=== PATIENT | female | born 1955 | race Caucasian/White ===

== ENCOUNTER 2017-10-20 10:00 | Inpatient (IN) | payer OTHER ==
[~2017-10-20] VITALS: Ht 160 cm; Wt 56.7 kg
[~2017-10-20 10:00] MED LIST: ADVAIR HFA 115-12 G1 INH; ALBUTEROL2.5 MG/0.5 INH; ASPIRIN325 PO; AUGMENTIN 875875 MG PO; COLACE100 MG PO; DOXYCYCLINE 10100 MG PO; GLYBURIDE 2.52.5 MG PO; LISINOPRIL5 MG PO; METFORMIN HCL500 MG PO; MUCINEX600 MG PO; PREDNISONE 10 M10 MG PO; PROTONIX40 M1 PO; SINGULAIR 10 MG10 M1 PO; SYMBICORT160 MCG/4. INH; TESSALON PERLE100 MG PO
[2017-10-20] MEDS ORDERED: CIPRO500 MG PO (10:08)
[2017-10-20 10:25] LABS: HEMATOCRIT 32.2 % (37.0-47.0); MCH 28.5 pg (26.0-34.0); MCHC 31.2 g/dL (28.0-37.0); MCV 91.3 fL (80.0-100.0); MPV 6.9 fl. (7.2-11.1); NUCLEATED RBCS 0 /100WBC; PLATELET COUNT* 754 thou/uL (150-400); RBC 3.52 mil/uL (4.20-5.00); RDW-CV 18.2 % (10.5-14.5); WBC 15.9 thou/uL (4.0-11.0)
[2017-10-20 10:31] LABS: APTT 26.7 Seconds (25.0-31.3); PROTIME 10.2 Seconds (9.20-11.50)
[2017-10-20 10:39] LABS: ANION GAP 4 mmol/L (7-16); BUN 9 mg/dL (7-18); CALCIUM 9.3 mg/dL (8.5-10.1); CHLORIDE 93 mmol/L (98-107); CO2 42 mmol/L (21-32); CREATININE 0.4 mg/dL (0.6-1.3); GLUCOSE 107 mg/dL (70-99); POTASSIUM 4.1 mmol/L (3.5-5.1); SODIUM 139 mmol/L (136-145)
[2017-10-20 10:46] LABS: ALBUMIN 2.5 g/dL (3.4-5.0); ALKALINE PHOSPHATASE 115 U/L (46-116); SGOT 20 U/L (15-37); SGPT 20 U/L (30-65); TOTAL BILIRUBIN 0.3 mg/dL (<0.1-1.0); TOTAL PROTEIN 7.6 g/dL (6.4-8.2); TROPONIN-I LEVEL <0.06 ng/mL (<0.06)
[2017-10-20 10:54] LABS: BE 10.2 mmol/L (-2 to +3); HCO3 38.9 mmol/L (22.0-26.0); PCO2 78.9 mmHg (35.0-45.0); PO2 78.8 mmHg (75.0-100.0); pH 7.311 (7.340-7.450)
--- NOTE | 2017-10-20 11:10 | NUR ---
PT BEING PUT ON BIPAP
[2017-10-20 11:15] LABS: ABSOLUTE LYMPHOCYTES 1.3 thou/uL (0.8-5.3); ABSOLUTE MONOCYTES 1.6 thou/uL (0.0-1.2); ANISOCYTOSIS 1+; PLATELET ESTIMATE INCREASED
[2017-10-20 11:16] LABS: HYPOCHROMASIA Occasional; POIKILOCYTOSIS Occasional
--- NOTE | 2017-10-20 11:18 | NUR ---
PT'S IV FLUIDS WERE STOPPED, TUBING WAS REMOVED FROM PT'S IV SITE AND PT'S IV WAS FLUSHED. LORAZEPAM WAS ADMINISTERED THROUGH PT'S IV SITE, THEN FLUSHED. IV FLUIDS/TUBING WERE THEN RE-ATTACHED TO IV AND CONTINUED.
[2017-10-20 12:26] VITALS: BP 129/56
--- NOTE | 2017-10-20 13:00 | NUR ---
PT ARRIVED TO ROOM 1 VIA CART. PT ON BIPAP. PT GOWNED AND PLACED ON MONITOR-NSR. PT ORIENTED TO ROOM,CALL LIGHT WITHIN REACH
[2017-10-20 13:30] VITALS: BP 119/75
--- NOTE | 2017-10-20 15:00 | NUR ---
PT INSISTING BIPAP BE REMOVED. BIPAP REMOVED. PT PLACED ON O2@4L NC-SATS 88%. PT STATES SHE WAS ON THE VENTILATOR AT [facility] "AND I NEVER WANT THAT AGAIN".
[2017-10-20] MEDS ORDERED: ROXICODONE5 MG PO (15:41)
[2017-10-20 16:00] VITALS: BP 119/66
--- NOTE | 2017-10-20 16:01 | NUR ---
PT ANXIOUS,REQUESTING ANXIETY AND PAIN MEDS. NO ORDERS AT THIS TIME. DR FERNANDEZ CALLED. DR FERNANDEZ INFORMED OF PT'S WISHES TO BE A DNI. ORDERS RECEIVED. ORDER TO DRAW ABGS BEFORE OPIATES OR BENZOS ORDERED. PT INFORMED OF DELAY IN ORDERS D/T TEST. [facility]
[2017-10-20 16:56] LABS: BE 17.5 mmol/L (-2 to +3); pH 7.377 (7.340-7.450)
[2017-10-20 16:57] LABS: HCO3 45.7 mmol/L (22.0-26.0); PCO2 79.6 mmHg (35.0-45.0); PO2 57.6 mmHg (75.0-100.0)
--- NOTE | 2017-10-20 17:08 | NUR ---
ABG RESULTS CALLED TO DR FERNANDEZ. NO ORDERS RECEIVED. AWAITING PULMONARY CONSULT. PT UPDATED AND STATES THAT SHE IS NOT GOING TO PUT THE BIPAP ON AND "JUST WANTS ANXIETY MEDICINE"
--- NOTE | 2017-10-20 17:43 | NUR ---
PT UP TO UNIT THIS AFTERNOON. PT WORE BIPAP FOR A FEW HOURS. PT ASKING FOR PAIN AND ANXIETY MEDS. PULM CONSULT THIS PM. AGUILAR CATH DRAINING CLEAR YELLOW URINE. PT TOLERATING PO WELL
[2017-10-20 18:00] VITALS: BP 124/61
[2017-10-20 22:00] VITALS: BP 104/54
[2017-10-21] VITALS (18 sets, daily range): BP systolic 78–142; BP diastolic 45–71
[2017-10-21 04:30] LABS: CALCIUM 8.3 mg/dL (8.5-10.1); CREATININE 0.5 mg/dL (0.6-1.3); HEMATOCRIT 28.1 % (37.0-47.0); HEMOGLOBIN 8.9 gm/dL (12.0-15.0); MAGNESIUM 1.7 mg/dL (1.8-2.4); MCH 29.2 pg (26.0-34.0); MCHC 31.8 g/dL (28.0-37.0); MCV 91.8 fL (80.0-100.0); RBC 3.06 mil/uL (4.20-5.00); WBC 8.6 thou/uL (4.0-11.0)
[2017-10-21 05:05] LABS: BE 12.1 mmol/L (-2 to +3); PO2 87.8 mmHg (75.0-100.0)
[2017-10-21 05:06] LABS: PCO2 90.4 mmHg (35.0-45.0); pH 7.277 (7.340-7.450)
[2017-10-21 05:07] LABS: HCO3 41.2 mmol/L (22.0-26.0)
[2017-10-21 05:20] LABS: POTASSIUM 5.5 mmol/L (3.5-5.1)
--- NOTE | 2017-10-21 07:04 | NUR ---
PT CARE ASSUMED. ST ON MONITOR. IVF INFUSING. O2 7L HF NC. PT REFUSING BIPAP. PRN PAIN MEDICATION GIVEN PER PT REQUEST. RYAN MORALES CALLED TO DR SOTUH. ORDERES RECEIVED. PT UNABLE TO KEEP O2 SAT AT 90% ON KEYLA MASK. PLACED BACK ON NC PER RT. LAUREN TO DD. CALL LIGHT IN REACH. BED IN LOWEST POSITION. FALL PRECAUTIONS IN PLACE INCLUDING BED ALARM. SLOW TO PROGRESS TOWARDS GOALS.
--- NOTE | 2017-10-21 07:28 | NUR ---
ASSUMED CARE OF PATIENT AFTER RECEIVING BEDSIDE REPORT. ASSESSMENT COMPLETED, VSS. PATIENT DENIES COMPLAINTS AND CONCERNS BUT DOES REPORT SOME ABDOMINAL PAIN. PATIENT DOES NOT APPEAR TO BE IN RESPIRATORY DISTRESS AND HAS AN O2 SATURATION OF 100% ON 7L. PATIENT DOES HAVE PRODUCTIVE COUGH. LUNG SOUND ARE COARSE WITH AUDIBLE WHEEZES AND RONCHI. PATIENT TURNS SELF IN BED BUT IS ENCOURAGED TO REPOSITION SELF FREQUENTLY, PATIENT STATES UNDERSTANDING. CARDIAC MONITORING IN PLACE, SINUS RHYTHM NOTED. BED ALARM ON. CALL LIGHT WITHIN REACH, USE REINFORCED. WILL CONTINUE TO MONITOR.
--- NOTE | 2017-10-21 09:25 | CON ---
[address] [address] CONSULTATION Name: FLORESMARLON Josué Room: [address] IN M.R.#: [id number] Admission: 10/20/17 Attend Phys: Jose Bermeo, Discharge: Date of : 59 Report #: [id number] THIS REPORT FOR: //name// CC: Jose Knowles HISTORY OF PRESENT ILLNESS: The patient is a 61-year-old female patient with history of COPD, chronic respiratory failure, on home oxygen. She is known to our service from hospitalization at [place]. Unfortunately, she continues to smoke and she has severe COPD. Few weeks ago, she was admitted and she was on the ventilator at [facility] for influenza , Her hospital course at that time was complicated by rectus sheet hematoma and she was discharged home. She presented back to [facility] ER with increasing cough with sputum production, she described the sputum is yellow in color, associated with shortness of breath and feeling of chest tightness. She still smokes around 6 cigarettes per day. Her ABGs were noted. This morning, her ABG showed CO2 of 90; however, surprisingly she is tolerating that very well. She is awake, alert, protecting the airways, talking, answer questions , Initially she was refusing intubation but after Dr. Holder explained to her the current situation she changed her code status to full code she confirmed that she does not want intubation. Unfortunately, she is intolerant to the BiPAP; even ON previous hospitalization, she cannot keep her BiPAP. However, per the RT, yesterday she was able to keep the BiPAP on after she received 0.25 mg of Xanax. ALLERGIES: No known drug allergies, although she reported that she has been told she had MORPHINE allergy per her daughter. HOME MEDICATIONS: She is on lisinopril, guaifenesin, Symbicort, albuterol nebulization treatment, montelukast, pantoprazole, metformin, and recently was on prednisone taper. PAST MEDICAL HISTORY: Chronic respiratory failure, on home oxygen; COPD, coronary artery disease, status post stents; and hypertension. PAST SURGICAL HISTORY: Stoma with reversal and surgery in 2006. SOCIAL HISTORY: She continues to smoke for a long time, unfortunately she continues to smoke 6 cigarettes per day. She does not drink alcohol excessively. REVIEW OF SYSTEMS: She reported weakness, tiredness, fatigue, but she denied any change in vision. She denied difficulty swallowing or neck pain. She denied any palpitation or chest pain. She reported poor appetite. No abdominal pain. No bleeding from any orifice. The rest of the review [place] [address] CONSULTATION Name: MARLON FLORES Josué Room: [address] IN .R.#: [id number] Admission: 10/20/17 Attend Phys: Jose Bermeo, Discharge: Date of : 59 Report #: [id number] PHYSICAL EXAMINATION: VITAL SIGNS: On examination, she is on 6 liters oxygen with saturation more than 90%, her blood pressure is 125/56, pulse rate of 100-110, afebrile. GENERAL: Elderly lady, awake, alert, answering questions properly. HEAD: Normocephalic, atraumatic. EYES: Pupils reactive to light. EARS: External ear looks healthy and normal. ORAL CAVITY: Dry mucous membrane. Mallampati of 2. NECK: Supple. CHEST: Diminished air movement bilaterally, prolonged expiratory phase with wheezes. HEART: S1, S2, no murmur. ABDOMEN: Benign, soft, lax, nontender. EXTREMITIES: Lower extremities, no edema. No calf tenderness. SKIN: Normal for age and race. No rash. NEUROLOGIC: Moving 4 extremities spontaneously. No focal weakness. NEUROLOGIC: Although, her CO2 was high, but she is tolerating that well, protecting the airways and answer questions properly. LABORATORY DATA: Her chest x-ray showed signs of diffuse interstitial markings. Her ABGs, she had 3 sets of ABGs, this one this morning 7.27//87. Creatinine of 0.5, BUN of 12, bicarb 40, potassium 5.5. Her INR of 1. White blood count 15.9, hemoglobin 10, and platelets of 754. Currently, she is on IV steroids every 6 hours, Singulair, levofloxacin, Brovana, Pulmicort, vancomycin, scheduled nebulization treatment, Xanax p.r.n. IMPRESSION: 1. Acute hypoxic and hypercapnic respiratory failure on chronic. 2. Chronic obstructive pulmonary disease exacerbation. 3. Smoker. 4. History of coronary artery disease. At this point, the patient will continue the steroids, scheduled nebulization treatment, and bronchodilators. Initially she was DNI but now she is full code , I did discuss with the patient, although her CO2 is high, but she is mentating well, protecting the airways, answer questions properly, she is tolerating the high CO2 very well at this point. However, definitely she needs to be on BiPAP. She may benefit from small dose of anxiolytic like Xanax, which can help with anxiety and let her keep her BiPAP in place. We will follow chest x-rays and ABGs. Condition guarded, prognosis guarded , although she is tolerating the High CO2 but may need to be intubated especially if she continues to be intolerant to BiPAP. [address] [address] CONSULTATION Name: MARLON FLORES Room: 001-P ADM IN .R.#: [id number] Admission: 10/20/17 Attend Phys: Jose Bermeo, Discharge: Date of : 59 Report #: [id number] Thank you for the consult. Critical Care time 35 minutes <ELECTRONICALLY SIGNED> By: Piero Perez MD 10/21/17 0925 [id number] Perez MD /nt
--- NOTE | 2017-10-21 12:12 | EKG ---
[place] [address] ELECTROCARDIOGRAM REPORT Name: MARLON FLORES Room: [address] ADM IN .R.#: [id number] Admission: 10/20/17 Attend Phys: Jose Bermeo, Discharge: Date of : 59 Report #: [id number] THIS REPORT FOR: //name// [facility] ED Test Date: 2017-10-20 Test Time: 10:50:49 Pat Name: MARLON FLORES Department: Room: [facility] Gender: F Playground Monitor: Javi MALONE : 1955 Requested By: Jesus Danielle Order Number: [id number] MD: Emir Waller Measurements Intervals [place] Rate: 126 P: 91 PA: 140 QRS: 72 QRSD: 92 T: 57 QT: 313 QTc: 454 Interpretive Statements Sinus tachycardia Probable left atrial enlargement Artifact in lead(s) I,II,III,aVR,aVL,aVF Compared to ECG 09/21/2014 10:42:09 Sinus rhythm no longer present Electronically Signed On 10-21-2017 12:12:25 CDT by Emir Waller [email or web address] <ELECTRONICALLY SIGNED> By: Emir Waller MD, FAC 10/21/17 1212 1050 1050 Emir Waller MD, [facility] /EPI
[2017-10-21 12:45] LABS: BE 13.1 mmol/L (-2 to +3); PO2 62.3 mmHg (75.0-100.0)
[2017-10-21 12:46] LABS: HCO3 42.2 mmol/L (22.0-26.0); PCO2 88.2 mmHg (35.0-45.0); pH 7.298 (7.340-7.450)
--- NOTE | 2017-10-21 13:30 | NUR ---
PT ADMITTED YESTERDAY WITH RESP FAILURE, NOT DOING WELL THIS MORNING ON BIPAP. NURSE HAD DISCUSSION WITH PT AND SHE DOES WANT TO BE INTUBATED. SHE WANTED TO COMPLETE A DPOA FORM PRIOR TO INTUBATION, NAMING HER DPOA. FORM COMPLETED AND COPY ON THE CHART.
--- NOTE | 2017-10-21 14:19 | NUR ---
PATIENT CONTINUED TO DETERIORATE THROUGHOUT SHIFT. INTUBATION DISCUSSED AT LENGTH SEVERAL TIMES. PATIENT STATES UNDERSTANDING OF NEED FOR INTUBATION. PATIENT MADE DPOA PRIOR TO INTUBATION. RISKS AND BENEFITS DISCUSSED WITH PATIENT, PATIENT STATES UNDERSTANDING. PATIENT INTUBATED WITH SOME DIFFICULTY. PICC LINE BEING PLACED AT CURRENT. PATIENT TOLERATING WELL. PATIENT CONTINUES TO BE TACHYCARDIC DESPITE SEDATION. WILL CONTINUE TO MONITOR.
[2017-10-21 14:51] LABS: BE 12.9 mmol/L (-2 to +3); PO2 82.7 mmHg (75.0-100.0)
[2017-10-21 14:56] LABS: pH 7.262 (7.340-7.450)
[2017-10-21 14:57] LABS: HCO3 42.7 mmol/L (22.0-26.0); PCO2 96.8 mmHg (35.0-45.0)
--- NOTE | 2017-10-21 15:54 | NUR ---
CONSULTED TO PLACE PICC FOR PT SEDATED AND ON VENT WITH PE. ORDER AND CONSENT NOTED. RIGHT UPPER ARM ASSESSED WITH ULTRASOUND AND BASILIC VEIN IDENTIFIED AND NOTED TO BE WIDLEY PATENT. A 5FR TRIPLE LUMAN POWER PICC WAS PLACED PER HOSPITAL POLICY. LINE TRIMMED TO 42CM AND ADVANCED TO 0CM EXTERNAL WITH OUT DIFFICULTY. LINE TIP CONFIRMED WTIH SHERLOCK 3CG . LINE SECURED AND RELEASED FOR IMMEDIATE USE. PRIMARY NURSING AWARE.
--- NOTE | 2017-10-21 18:38 | NUR ---
PATIENT HAD IVC FILTER PLACED, TOLERATED WELL. PATIENT CURRENTLY ON LEVOPHED, PATIENT TOLERATING WELL. PATIENT WELL SEDATED BUT ARROUSABLE. PATIENT DOES NOT FOLLOW COMMANDS AT THIS TIME BUT DOES LOCALIZE TO PAIN. BEDSIDE REPORT TO BE GIVEN TO ONCOMING SHIFT.
[2017-10-22] VITALS (24 sets, daily range): BP systolic 89–145; BP diastolic 52–81
[2017-10-22 05:37] LABS: ALBUMIN 2.1 g/dL (3.4-5.0); CALCIUM 8.3 mg/dL (8.5-10.1); CREATININE 0.5 mg/dL (0.6-1.3); POTASSIUM 4.6 mmol/L (3.5-5.1); TOTAL BILIRUBIN 0.3 mg/dL (<0.1-1.0)
[2017-10-22 05:46] LABS: ABSOLUTE MONOCYTES 0.8 thou/uL (0.0-1.2); ABSOLUTE NEUTROPHILS 10.7 thou/uL (1.6-8.1); BASOPHILS 0.1 %; HEMATOCRIT 25.7 % (37.0-47.0); HEMOGLOBIN 8.1 gm/dL (12.0-15.0); LYMPHOCYTES 8.2 %; MCH 28.8 pg (26.0-34.0); MCHC 31.6 g/dL (28.0-37.0); MONOCYTES 6.3 %; MPV 7.1 fl. (7.2-11.1); NUCLEATED RBCS 0 /100WBC; PLATELET COUNT* 627 thou/uL (150-400); POLYS 85.4 %; RBC 2.82 mil/uL (4.20-5.00); WBC 12.5 thou/uL (4.0-11.0)
[2017-10-22 06:20] LABS: BE 5.8 mmol/L (-2 to +3); HCO3 31.2 mmol/L (22.0-26.0); PO2 113.1 mmHg (75.0-100.0)
--- NOTE | 2017-10-22 07:49 | NUR ---
ASSUMED CARE OF PATIENT AFTER RECEIVING BEDSIDE REPORT. PATIENT REMAINS INTUBATED AND SEDATED. PATIENT REMAINS ON LEVOPHED. ABGS CONTINUE TO IMPROVE ON VENTILATOR. BREATH SOUNDS CONTINUE TO IMPROVE. WILL WORK TOWARDS DECREASING LEVOPHED. DRIVEWAY SEALER IN PLACE, SINUS RHYTHM NOTED. BED ALARM ON. WILL CONTINUE TO MONITOR.
--- NOTE | 2017-10-22 16:23 | NUR ---
PT UP TO CHAIR FOR PT TOLERATED FOR ABOUT 30 MINUETS. COLOSTOMY REMAINS PATENT FOR REDISH AUTUMN BAEZ.PT HAS HAD ALOT OF VISITORS TODAY. UROLGY WAS HERE TO SEE PT.AWAITING TRANSFER TO TELE. SBAR FILLED OUT.
--- NOTE | 2017-10-22 17:48 | NUR ---
PATIENT RESTED WELL THROUGHOUT SHIFT. PATIENT TOLERATED BEING ON VENTILATOR THROUGHOUT SHIFT. PATIENT ABLE TO BE TITRATED OFF OF LEVOPHED GTT. SEDATION NEEDED TO BE TITRATED UP SLIGHTLY. PATIENT STILL ARROUSABLE. OG PLACED BY XRAY, PATIENT TOLERATED WELL. BEDSIDE REPORT TO BE GIVEN TO ONCOMING SHIFT.
[2017-10-23] VITALS (17 sets, daily range): BP systolic 100–145; BP diastolic 50–76
[2017-10-23 04:57] LABS: HEMATOCRIT 23.4 % (37.0-47.0); HEMOGLOBIN 7.6 gm/dL (12.0-15.0); MCH 29.4 pg (26.0-34.0); MCHC 32.4 g/dL (28.0-37.0); MCV 90.6 fL (80.0-100.0); MPV 6.9 fl. (7.2-11.1); NUCLEATED RBCS 0 /100WBC; RBC 2.58 mil/uL (4.20-5.00); RDW-CV 18.8 % (10.5-14.5); WBC 10.5 thou/uL (4.0-11.0)
[2017-10-23 05:07] LABS: PLATELET COUNT* 467 thou/uL (150-400)
[2017-10-23 05:09] LABS: PREALBUMIN 15.7 mg/dL (18.0-35.7)
[2017-10-23 05:11] LABS: CALCIUM 8.1 mg/dL (8.5-10.1); CREATININE 0.4 mg/dL (0.6-1.3); MAGNESIUM 1.6 mg/dL (1.8-2.4); POTASSIUM 4.2 mmol/L (3.5-5.1); TOTAL BILIRUBIN 0.3 mg/dL (<0.1-1.0); TOTAL PROTEIN 5.4 g/dL (6.4-8.2)
[2017-10-23 05:53] LABS: ABSOLUTE LYMPHOCYTES 0.5 thou/uL (0.8-5.3); ANISOCYTOSIS 1+; PLATELET ESTIMATE ADEQUATE; POIKILOCYTOSIS 1+
[2017-10-23 05:54] LABS: HYPOCHROMASIA 1+; TARGET CELLS Occasional
[2017-10-23 08:49] LABS: BE 5.3 mmol/L (-2 to +3); HCO3 29.9 mmol/L (22.0-26.0); PCO2 44.2 mmHg (35.0-45.0); PO2 100.4 mmHg (75.0-100.0); pH 7.448 (7.340-7.450)
--- NOTE | 2017-10-23 10:49 | NUR ---
PT REMAINS ON VENT, NO WEANING TRIAL TODAY. NO FAMILY HERE AT THIS TIME. CASE MGT TO CONTINUE TO FOLLOW.
--- NOTE | 2017-10-23 23:36 | NUR ---
INITAL ASSESSMENT COMPLETED AT 1999. PT INTUBATED AND SEDATED ON MONITOR. SOFT BILATERAL WRISTRESTRAINTS IN PLACE TO MAINTAIN ET TUBE, OG, AGUILAR CATHETER AND IV SITES.
[2017-10-24] VITALS (21 sets, daily range): BP systolic 94–172; BP diastolic 53–89
[2017-10-24 06:03] LABS: ABSOLUTE LYMPHOCYTES 2.1 thou/uL (0.8-5.3); ABSOLUTE MONOCYTES 0.7 thou/uL (0.0-1.2); ABSOLUTE NEUTROPHILS 9.4 thou/uL (1.6-8.1); BASOPHILS 0.1 %; HEMATOCRIT 24.1 % (37.0-47.0); HEMOGLOBIN 7.4 gm/dL (12.0-15.0); LYMPHOCYTES 17.1 %; MCHC 30.8 g/dL (28.0-37.0); MCV 91.1 fL (80.0-100.0); MONOCYTES 5.8 %; MPV 6.8 fl. (7.2-11.1); NUCLEATED RBCS 0 /100WBC; PLATELET COUNT* 424 thou/uL (150-400); RBC 2.64 mil/uL (4.20-5.00); RDW-CV 18.6 % (10.5-14.5); WBC 12.2 thou/uL (4.0-11.0)
[2017-10-24 06:12] LABS: PREALBUMIN 17.8 mg/dL (18.0-35.7)
[2017-10-24 06:23] LABS: CALCIUM 8.1 mg/dL (8.5-10.1); CREATININE 0.4 mg/dL (0.6-1.3); POTASSIUM 3.5 mmol/L (3.5-5.1); TOTAL BILIRUBIN 0.3 mg/dL (<0.1-1.0); TOTAL PROTEIN 5.3 g/dL (6.4-8.2)
[2017-10-24 09:59] LABS: BE 5.2 mmol/L (-2 to +3); HCO3 31.6 mmol/L (22.0-26.0); PO2 68.7 mmHg (75.0-100.0); pH 7.354 (7.340-7.450)
--- NOTE | 2017-10-24 10:36 | NUR ---
Nutrition: Recommend Fibersource HN @ goal rate 55mL/hr. See RD Assessment Form for details.
--- NOTE | 2017-10-24 11:58 | NUR ---
ASSUMED PT CARE 0730. SEDATION TURNED OFF AT 0805 FOR WEANING TRIAL. PT FAILED WEANING TRIAL TOWARDS END HR IN 140'S AND O2 65%. PT PLACED BACK ON VENTILATOR WITH SEDATION. PT FOLLOWING COMMANDS. PT ATTEMPTING TO PULL AT TUBES. RESTRAINTS IN PLACE. RESTRAINT ORDER RENEWED. RECEIVED ORDERS FOR TUBE FEEDINGS. ADDRESSED MUCINEX WITH DR. DR GREENE MUCINEX. DPOA CALLED FOR CONSENT FOR BLOOD PRODUCT. SURGERY CONSULTED FOR POTENTIAL PLACEMENT OF TRACH.
[2017-10-24 18:33] LABS: HEMATOCRIT 25.4 % (37.0-47.0); HEMOGLOBIN 8.1 gm/dL (12.0-15.0)
--- NOTE | 2017-10-24 18:52 | NUR ---
ORAL CARE GIVEN. PT AFEBRILE. PT REPOSITIONED. RESIDUAL TUBE FEEDINGS 45. RATE REMAINED AT 10ML / HOUR. PT REPOSITIONED. ORAL CARE GIVEN. DTR GIVEN UPDATE.
[2017-10-25] VITALS (18 sets, daily range): BP systolic 95–160; BP diastolic 52–86
[2017-10-25 04:43] LABS: ABSOLUTE LYMPHOCYTES 1.3 thou/uL (0.8-5.3); ABSOLUTE MONOCYTES 0.4 thou/uL (0.0-1.2); ABSOLUTE NEUTROPHILS 9.4 thou/uL (1.6-8.1); BASOPHILS 0.1 %; HEMATOCRIT 27.9 % (37.0-47.0); HEMOGLOBIN 8.9 gm/dL (12.0-15.0); LYMPHOCYTES 11.4 %; MCH 28.6 pg (26.0-34.0); MCHC 31.9 g/dL (28.0-37.0); MCV 89.7 fL (80.0-100.0); MONOCYTES 3.2 %; MPV 7.1 fl. (7.2-11.1); NUCLEATED RBCS 1 /100WBC; PLATELET COUNT* 407 thou/uL (150-400); POLYS 85.3 %; RBC 3.11 mil/uL (4.20-5.00); RDW-CV 18.4 % (10.5-14.5)
[2017-10-25 04:49] LABS: ALBUMIN 2.1 g/dL (3.4-5.0); CALCIUM 8.1 mg/dL (8.5-10.1); CREATININE 0.4 mg/dL (0.6-1.3); MAGNESIUM 1.8 mg/dL (1.8-2.4); POTASSIUM 4.2 mmol/L (3.5-5.1); TOTAL BILIRUBIN 0.3 mg/dL (<0.1-1.0); TOTAL PROTEIN 5.5 g/dL (6.4-8.2)
--- NOTE | 2017-10-25 06:43 | NUR ---
PATIENT SLOWLY PROGRESSING. ON FENTANYL GTT, VERSED IS OFF D/T SCHEDUALED WEANING TRIAL THIS A.M. TUBE FEEDS OFF, RESIDUALS REMAINED LOW. NO ACUTE HEMODYNAMIC CHANGES OVER NIGHT. RECIEVED A FULL BED BATH AND LAMONTE CHANGE, TOLERATED WELL. Q2H ORAL CARE AND TURNS GIVEN. BED TO LOWEST POSITION. WILL CONTINUE TO MONITOR CLOSELY.
[2017-10-25 08:40] LABS: BE 1.9 mmol/L (-2 to +3); HCO3 28.3 mmol/L (22.0-26.0); PO2 70.9 mmHg (75.0-100.0); pH 7.345 (7.340-7.450)
[2017-10-25 08:41] LABS: PCO2 53.1 mmHg (35.0-45.0)
--- NOTE | 2017-10-25 10:15 | NUR ---
Pt remains on the vent, per nursing did well with her weaning trial today. No family here at this time but nursing said and dtr call during the day to check on her. They had no difficulty in reaching the yesterday when they needed consent to give blood. Case Mgt continues to follow.
--- NOTE | 2017-10-25 12:54 | NUR ---
ASSUMED PT CARE 0730. WEANING TRIAL COMPLETED. PER PULMONARY PT IMPROVING, WILL ATTEMPT TRIAL TOMORROW AND PLAN TO EXTUBATE TO BIBAP. VSS. MEDICATIONS GIVEN VIA OG. PT AFEBRILE. SEDATION VACATION COMPLETE. PT RESPONDING, FOLLOWING COMMANDS, ANXIOUS WITHOUT SEDATION.
--- NOTE | 2017-10-25 16:49 | NUR ---
VSS. PT TOLERATING SEDATION. PT ABLE TO FOLLOW COMMANDS. PT REPOSITIONED. ORAL CARE GIVEN. INTAKE AND OUTPUT CHARTED. PT PLANNED TO HAVE WEANING TRIAL TOMORROW.
[2017-10-26] VITALS (19 sets, daily range): BP systolic 111–167; BP diastolic 55–94
--- NOTE | 2017-10-26 06:54 | NUR ---
PATIENT PROGRESSING TOWARDS GOALS. NO ACUTE HEMODYNAMIC CHANGES OVER NIGHT. ABLE TO FALLOW COMMANDS. TUBE FEEDS TOLERATED AT GOAL OF 55 RESIDULAS <10. TUBEFEED TURNED OFF D/T TTT THIS AM. FENTANYL @ 8ML AND VERSED OFF. RECIEVED FULL BED BATH WITH LINEN CHANGE. ORAL CARE GIVEN Q2H WITH POSITIONAL CHANGES. URINE OUPUT ADEQUATE. WILL CONTINUE TO MONITOR CLOSELY.
[2017-10-26 07:04] LABS: HEMATOCRIT 28.5 % (37.0-47.0); HEMOGLOBIN 8.9 gm/dL (12.0-15.0); MCH 28.1 pg (26.0-34.0); MCHC 31.3 g/dL (28.0-37.0); MCV 89.8 fL (80.0-100.0); MPV 7.5 fl. (7.2-11.1); RBC 3.18 mil/uL (4.20-5.00); RDW-CV 18.1 % (10.5-14.5); WBC 13.3 thou/uL (4.0-11.0)
--- NOTE | 2017-10-26 08:37 | NUR ---
2493 ASSUMED CARE OF PATIENT. PLEASE SEE DOCUMENTED ASSESSMENT. PT AWAKE AND ABLE TO FOLLOW COMMANDS. DR ROJO TO SEE PATIENT. PLAN IS VENT WEANING TRIAL AND POSSIBLE EXTUBATION
--- NOTE | 2017-10-26 08:38 | NUR ---
0830 STARTED WEANING TRIAL. FENTANYL REMAINS AT 25 MCG/HOUR. VERSED REMAINS OFF AND TUBE FEEDING IS OFF
[2017-10-26 09:13] LABS: BE 6.8 mmol/L (-2 to +3); HCO3 32.9 mmol/L (22.0-26.0); PO2 71.9 mmHg (75.0-100.0)
[2017-10-26 09:17] LABS: PCO2 55.6 mmHg (35.0-45.0)
--- NOTE | 2017-10-26 09:51 | NUR ---
0940 ABG TO DRMIGLIAZZO. ORDER TO EXTUBATE AND REMOVE OG. OFF OF VERSED AND FENTANYL DRIPS. EXTUBATED O 35% VENTIMASK. GIVEN CALL LIGHT AND SUCTION. MOUHT SUCTINNED AND SWABBED. SINUS TACH
[2017-10-26 11:35] LABS: BE 8.3 mmol/L (-2 to +3); HCO3 33.9 mmol/L (22.0-26.0); PO2 70.7 mmHg (75.0-100.0); pH 7.416 (7.340-7.450)
--- NOTE | 2017-10-26 11:51 | NUR ---
ABG TO DR ROJO. MAY START CLEAR LIQUIDS.SPOUSE PRESENT
--- NOTE | 2017-10-26 16:09 | NUR ---
DR ROJO CALLED TO CHECK ON PATIENT. ORDERS NOTED. PT PREFERS TO BE ON NASAL CANNULA BUT AGREES TO 35% VENTIMASK AGAIN. MORE ORIENTED AND COOPERATIVE NOW.
--- NOTE | 2017-10-26 17:07 | NUR ---
PATIENT PROGRESSING TOWARDS GOALS. EXTUBATED THIS MORNING TO 35% VENTIMASK. ALERT AND ORIENTED. STARTED INCENTIVE SPIROMETER AND FLUTTER VALVE. SECRETIONS THICK BUT MOBILE.HELPS WITH TURNS. TOLERATING CLEAR LIQUIDS BUT NOT HUNGRY. SPOUSE HAS VISITED
--- NOTE | 2017-10-26 17:16 | NUR ---
PATIENT NOW TELEMETRY STATUS
[2017-10-27] VITALS (17 sets, daily range): BP systolic 130–167; BP diastolic 66–101
[2017-10-27 02:32] LABS: HEMOGLOBIN 8.8 gm/dL (12.0-15.0); MCH 28.3 pg (26.0-34.0); MCHC 31.6 g/dL (28.0-37.0); MCV 89.7 fL (80.0-100.0); NUCLEATED RBCS 0 /100WBC; PLATELET COUNT* 389 thou/uL (150-400); RBC 3.12 mil/uL (4.20-5.00); RDW-CV 18.2 % (10.5-14.5); WBC 17.3 thou/uL (4.0-11.0)
[2017-10-27 02:46] LABS: ALBUMIN 2.4 g/dL (3.4-5.0); CALCIUM 8.2 mg/dL (8.5-10.1); CREATININE 0.3 mg/dL (0.6-1.3); POTASSIUM 3.3 mmol/L (3.5-5.1); TOTAL BILIRUBIN 0.5 mg/dL (<0.1-1.0); TOTAL PROTEIN 5.6 g/dL (6.4-8.2)
[2017-10-27 03:20] LABS: ABSOLUTE LYMPHOCYTES 1.6 thou/uL (0.8-5.3); ABSOLUTE MONOCYTES 0.5 thou/uL (0.0-1.2); ABSOLUTE NEUTROPHILS 15.2 thou/uL (1.6-8.1)
[2017-10-27 03:21] LABS: ANISOCYTOSIS 1+; PLATELET ESTIMATE ADEQUATE; TOXIC GRANULATION 1+
--- NOTE | 2017-10-27 05:01 | NUR ---
PATIENT SLOWLY PROGRESSING TOWARDS GOALS. ORIENT X4. STRENGTH IMPROVING. O2 WNL ON VENTIMASK TOLERATING WELL. PATIENT HAD TROUBLE SLEEPING OVER NIGHT WAS ABLE TO FALL ASLEEP ARUND 430 A.M. PATIENT CONTINUES TO HAVE LEFT SHOULDER PAIN. REPOSITION IN BED CONSISTENTLY TO HELP WITH PAIN MANAGEMENT. CURRENTLY NO VOICED CONCERNS WILL CONTINUE TO MONITOR CLOSELY. CALL LIGHT WITHIN REACH. BED TO LOWEST POSITION.
--- NOTE | 2017-10-27 09:58 | NUR ---
6574 ASSUMED CARE OF PATIENT. SEE DOCUMENTED ASSESSMENT. GOAL IS TO STAY OFF OF THE VENTILATOR.
--- NOTE | 2017-10-27 12:53 | NUR ---
WORKED WITH PHYSICAL THERAPY
--- NOTE | 2017-10-27 17:14 | NUR ---
SOME PROGRESSION TOWARDS GOALS. VERY ANXIOUS THIS AM AND WOULD PANIC AND SAY"I CAN'T BREATHE." MULTITUDES OF C/O OF "PAIN ALL OVER." WAS ABLE TO WORK WITH PHYSICAL THERAPY BUT DID NOT WANT TO DANGLE. DOES WELL WITH CLEAR LIQUIDS. BECOMES VERY SHORT OF AIR WITH ANY ACTIVITY. SPOUSE VISITED
--- NOTE | 2017-10-27 18:11 | NUR ---
ADVANCED TO 2 GRAM SODIUM DIET AND TOLERATING WELL
--- NOTE | 2017-10-27 19:45 | NUR ---
PT C/O OF PAIN ALL OVER. EXPLAINED TO THE PT THAT SHE HAS TORADOL ORDERED Q 8H AND IT WASN'T DUE UNTIL 2300. PT STATES THAT WE AREN'T TREATING HER PAIN AND IT NEEDS TO BE TREATED. PT ALSO STATES THAT SHE NEEDS SOMETHING FOR SLEEP B/C SHE DID'T SLEEP AT NIGHT. CALLED POWER TECHNICIAN AND SPOKE TO DEEP. HE SAID THAT THE ORDER FOR TORADOL IS ALL SHE IS GETTING AND TO USE THE XANAX FOR SLEEP.
--- NOTE | 2017-10-27 20:00 | NUR ---
DR ADAME CALLED AND GAVE AN ORDER FOR DIAZEPAM 7.5MG PO X1 DOSE FOR SLEEP. ORDER WRITTEN.
[2017-10-28] VITALS (7 sets, daily range): BP systolic 126–149; BP diastolic 67–78
--- NOTE | 2017-10-28 02:09 | NUR ---
REPORT GIVEN TO CRISELDA ON 2W. PT IS GOING TO BED 214
[2017-10-28 04:52] LABS: ABSOLUTE LYMPHOCYTES 1.5 thou/uL (0.8-5.3); ABSOLUTE MONOCYTES 0.7 thou/uL (0.0-1.2); ABSOLUTE NEUTROPHILS 12.4 thou/uL (1.6-8.1); HEMATOCRIT 28.6 % (37.0-47.0); HEMOGLOBIN 9.1 gm/dL (12.0-15.0); LYMPHOCYTES 10.2 %; MCH 28.8 pg (26.0-34.0); MCHC 31.7 g/dL (28.0-37.0); MCV 90.9 fL (80.0-100.0); MONOCYTES 4.8 %; MPV 7.2 fl. (7.2-11.1); NUCLEATED RBCS 0 /100WBC; PLATELET COUNT* 358 thou/uL (150-400); RBC 3.14 mil/uL (4.20-5.00); RDW-CV 18.2 % (10.5-14.5); WBC 14.6 thou/uL (4.0-11.0)
--- NOTE | 2017-10-28 05:04 | NUR ---
ASSUMED PT CARE AT 0300, PT IS A&OX4, TRACING NSR ON THE MONITOR, ON 35% VENTI MASK, ON 3L NC DURING MEALS. PT DENIES ANY PAIN OR NEEDS AT THIS TIME. PT IS RESTING IN BED COMFORTABLY. PT HAS A AGUILAR TO DD, PT HAS IVF INFUSIONG PER OCT. BED IN LOW POSITION, CALL LIGHT IN REACH, BED ALARM ON, YELLOW ARM BAND AND SOCKS IN PLACE, HOURLY ROUNDING COMPLETED FOR PT SAFETY.
[2017-10-28 05:10] LABS: ALBUMIN 2.5 g/dL (3.4-5.0); CALCIUM 8.4 mg/dL (8.5-10.1); CREATININE 0.3 mg/dL (0.6-1.3); TOTAL BILIRUBIN 0.7 mg/dL (<0.1-1.0); TOTAL PROTEIN 5.5 g/dL (6.4-8.2)
--- NOTE | 2017-10-28 08:30 | NUR ---
ASSUMED PT. CARE AND RECEIVED REPORT AT 0730. PT A/OX4, VSS, MONITOR ON TRACING SR. PT. C/O GENERALIZED PAIN DOWN FROM 11 TO 8 AFTER RECEIVING TORDAL FROM NOC RN, BUT REQUESTING SOMETHING FURTHER FOR RELIEF. ON VENTIMASK AT 35%, CHANGED TO 3L NC FOR BREAKFAST AT 94%. FULL ASSESSMENT COMPLETED, REFER TO CHARTING. DR. ADAME INTO SEE. DISCUSSED WITH PT. THAT HE DID NOT WANT TO GIVEN HER FURTHER PAIN/SLEEPING MEDS DUE TO RESPIRATORY DEPRESSION THAT CAN OCCUR. FALL PRECAUTIONS IN PLACE, CALL LIGHT IN REACH, WILL CONTINUE WITH PLAN OF CARE.
--- NOTE | 2017-10-28 15:44 | NUR ---
Pt's plan continues to be to return home once medically stable. CM discussed possible need for home o2 and payment options, since Pt does not have health insurance. Per Pulm, plan dc later this week. Following.
--- NOTE | 2017-10-28 19:10 | NUR ---
PT. PROGRESSING TOWARDS GOALS, UP TO RECLINER MOST OF THE DAY. O2 HAS REMAINED AT 3L NC, WITH HER TO WEAR VENTI MASK AT HS. AGUILAR REMOVED THIS EVENING. PT. HAD VISITORS OF SON/DAUGHTER/ TODAY. PT. WAS ABLE TO NAP THIS AFTERNOON FOR A FEW HOURS. HOURLY ROUNDING COMPLETED THROUGH OUT THE DAY FOR PT. SAFETY.
[2017-10-29 00:06] VITALS: BP 137/79
[2017-10-29 04:00] VITALS: BP 120/70
[2017-10-29 05:34] LABS: ABSOLUTE EOSINOPHILS 0.1 thou/uL (0.0-0.7); ABSOLUTE LYMPHOCYTES 2.5 thou/uL (0.8-5.3); ABSOLUTE MONOCYTES 0.8 thou/uL (0.0-1.2); ABSOLUTE NEUTROPHILS 10.3 thou/uL (1.6-8.1); BASOPHILS 0.1 %; EOSINOPHILS 0.9 %; HEMATOCRIT 29.1 % (37.0-47.0); LYMPHOCYTES 17.8 %; MCH 28.2 pg (26.0-34.0); MCHC 31.1 g/dL (28.0-37.0); MCV 90.9 fL (80.0-100.0); MONOCYTES 6.1 %; MPV 7.5 fl. (7.2-11.1); NUCLEATED RBCS 0 /100WBC; PLATELET COUNT* 361 thou/uL (150-400); POLYS 75.1 %; RDW-CV 19.3 % (10.5-14.5); WBC 13.7 thou/uL (4.0-11.0)
[2017-10-29 06:01] LABS: ALBUMIN 2.4 g/dL (3.4-5.0); CALCIUM 8.4 mg/dL (8.5-10.1); CREATININE 0.3 mg/dL (0.6-1.3); POTASSIUM 3.2 mmol/L (3.5-5.1); TOTAL BILIRUBIN 0.7 mg/dL (<0.1-1.0); TOTAL PROTEIN 5.5 g/dL (6.4-8.2)
--- NOTE | 2017-10-29 08:12 | NUR ---
PT IS ABLE TO COMMUNICATE HER NEEDS TO STAFF EFFECTIVELY. CURRENT PAIN MEDICATION REGIMEN HAS BEEN ADEQUATE FOR CONTROLLING HER PAIN UP TO THIS TIME. RIGHT UPPER ARM PICC PATENT. PT HAD AGUILAR OUT THE EVENING OF 10/28; VOIDED SEVERAL TIMES OVERNIGHT WITHOUT INCIDENT OR COMPLAINT.
[2017-10-29 10:33] LABS: BE 6.8 mmol/L (-2 to +3); HCO3 31.5 mmol/L (22.0-26.0); PCO2 46.2 mmHg (35.0-45.0); pH 7.452 (7.340-7.450)
[2017-10-29 11:30] VITALS: BP 141/82
--- NOTE | 2017-10-29 15:09 | NUR ---
STEPHANIE left message for Angela with [employer] to discuss [facility] ladonna, anticipate that Pt will have o2 needs at dc. Awaiting call back
[2017-10-29 16:00] VITALS: BP 166/66
--- NOTE | 2017-10-29 19:00 | NUR ---
RECEIVED REPORT. ASSUMED CARE OF PT AT 0730. PT A&O X4, VSS, O2 SAT 93% ON 3L PER NC. PT ANXIOUS TO GET HOME. BUSINESS RECORDS MANAGER IN PLACE TRACING SR/ST. AM ASSESSMENT AND VITALS COMPLETED CHARTED. RIGHT UPPER ARM PICC LINE INTACT, SALINE LOCKED. IVF DC'D. PT EATING AND DRINKING WITHOUT ISSUE THROUGHOUT THE SHIFT. PT UP WITH ASSIST X1 TO BEDSIDE COMMODE FREQUENTLY THIS SHIFT TO VOID, NO ISSUES. PT REPORTED LEFT ARM PAIN THIS AFTERNOON AND RECEIVED PO PAIN MEDICATION WITH RELIEF. PT HAD VISITORS ON AND OFF THROUGHOUT THE SHIFT. PT HAS SAT UP IN BEDSIDE CHAIR THROUGHOUT THE SHIFT. FALL PRECAUTIONS IN PLACE. CALL LIGHT IS WITHIN REACH. HOURLY ROUNDING PERFORMED.
[2017-10-29 20:22] VITALS: BP 116/66
[2017-10-30] VITALS: BP 112/67
[2017-10-30 04:00] VITALS: BP 115/56
--- NOTE | 2017-10-30 07:30 | NUR ---
ASSUMED CARE OF PT ASSESSED AND DOCUMENTED. PT IS ON CARDIAC MONITER TRACING NSR HR 81. PT IS A&O WITH NO C/O PAIN. VSS WNL. PT IS AFEBRILE. SHE IS ON 3L OF 02. BED IS IN LOW POSITION CALL LIGHT IS IN REACH. WM.
[2017-10-30 07:54] VITALS: BP 103/67
--- NOTE | 2017-10-30 08:09 | NUR ---
PT IS ABLE TO COMMUNICATE HER NEEDS TO STAFF EFFECTIVELY. CURRENT PAIN MEDICATION REGIMEN HAS BEEN ADEQUATE FOR CONTROLLING HER PAIN UP TO THIS TIME. POSSIBLE DISCHARGE TODAY.
--- NOTE | 2017-10-30 09:13 | NUR ---
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 Per Angela, did not seem motivated to provide the necessary info to complete the [employer] application process. also informed Angela "Pt has just enough O2 at home." CM estrellita confirm that Pt does have home o2. Angela will close the case d/t Pt/ decision to not provide needed info. Following.
[2017-10-30 11:50] VITALS: BP 121/69
[2017-10-30 15:59] VITALS: BP 104/60
--- NOTE | 2017-10-30 17:23 | NUR ---
PT HAS SET IN BEDSIDE CHAIR WATCHING TV THIS SHIFT. SHE HAS HAD SOME ANXIETY. PT WAS FOUND CRYING X1 AND STATED SHE WAS LONELY. PT HAS HAD INSULLIN WITH EACH MEAL, SEE MAR. EDUCATION GIVEN ON DEMAND. HOURLY ROUNDING COMPLETE.
[2017-10-30 20:50] VITALS: BP 126/69
[2017-10-31 00:40] VITALS: BP 115/66
[2017-10-31 03:48] VITALS: BP 103/47
[2017-10-31 07:30] VITALS: BP 93/54
--- NOTE | 2017-10-31 08:21 | NUR ---
PT IS ABLE TO COMMUNICATE HER NEEDS TO STAFF EFFECTIVELY. CURRENT PAIN MEDICATION REGIMEN HAS BEEN ADEQUATE FOR CONTROLLING HER PAIN UP TO THIS TIME. LIKELY DISCHARGE TODAY. PICC PATENT.
[2017-10-31] MEDS ORDERED: PROTONIX40 M1 PO (11:29)
[2017-10-31] MEDS ORDERED: PREDNISONE 10 M10 MG PO (11:30)
[2017-10-31 11:39] VITALS: BP 93/54
--- NOTE | 2017-10-31 12:48 | NUR ---
RECEIVED PT CARE 0700. PT IS ALERT AND ORIENTED X4. SOFT BP ON ASSESSMENT 93/54. HELD AM LISINOPRIL TODAY. O2 SAT 95% ON 3L NC. UP IN THE CHAIR FOR BREAKFAST. TRANSFERS WITH ASSIST X1 AND A WALKER. RECEIVED DISCHARGE ORDERS PER DR ADAME. PULMONARY OK WITH DC TODAY. DISCUSSED ANTIBIOTICS AND LASIX AFTER DISCHARGE WITH DR AADME. PATIENT FINISHED ANTIBIOTIC COARSE AND WOULD NOT TOLERATE LASIX AT HOME WITH SBP <100. EDUCATED PATIENT AND HER SPOUSE. PICC LINE DC'D AND PRESSURE DRESSING PLACED BY NURSING STUDENTS AND THEIR INSTRUCTOR. DENTAL APPLIANCE FIXER REMOVED AND RETURNED TO NURSE'S DESK. EDUCATED PATIENT ON F/U APPT WITH HER PRIMARY AND PULMONARY. ALL HER BELONGINGS ARE PACKED AND LEAVING WITH PATIENT. EDUCATED PATIENT TO CONTINUE O2 AT 3L PER NC AND KEEP O2 SATS GREATER THAN 90%. BOTH PATIENT AND HER SPOUSE VERBALIZED UNDERSTANDING. THEY BOTH DENY ANY QUESTIONS OR CONCERNS AT DISCHARGE. SHE IS LEAVING VIA WHEELCHAIR ACCOMPANIED BY HER SPOUSE AND NURSING STAFF.
--- NOTE | 2017-11-13 09:47 | OP ---
[address] [address] OPERATIVE REPORT Name: MARLON FLORES Josué Room: [address] IN M.R.#: [id number] Admission: 10/20/17 Attend Phys: Jose Bermeo, Discharge: 10/31/17 Date of : 59 Report #: [id number] THIS REPORT FOR: //name// CC: Jose Falconvan Knowles DATE OF SERVICE: 10/21/2017 PREOPERATIVE DIAGNOSIS: Pulmonary emboli with concern for bleeding secondary to hematoma, inability to anticoagulate. POSTOPERATIVE DIAGNOSIS: Pulmonary emboli with concern for bleeding secondary to hematoma, inability to anticoagulate. SURGEON: Portillo Vega DO SEWING ROOM SUPERVISOR: None. PROCEDURE: Bard Alexandra IVC filter placement. ANESTHESIA: Lidocaine 1%. ESTIMATED BLOOD LOSS: Minimal. SPECIMEN: None. COMPLICATIONS: None. CONDITION: Stable. DISPOSITION: Returned to ICU. INDICATIONS FOR THE PROCEDURE AND CONSENT: The patient is a 61-year-old female who presented with respiratory failure and pulmonary emboli. The patient was known to have a hematoma and it was felt unsafe to anticoagulate by her medical team. An IVC filter was requested. Risks and benefits were discussed with the family. The patient did have acute respiratory distress and required intubation. Informed consent was obtained from family and the patient was scheduled urgently for IVC filter placement. PROCEDURE IN DETAIL: After timeout was performed, the patient was placed in supine position with sterile prep and drape of bilateral groins. Ultrasound was used to identify the right common femoral vein. It was noted to be compressible and free of thrombus. A Seldinger technique was used to obtain access to the femoral vein and a [place] wire advanced into the vena cava without difficulty under fluoroscopic guidance. The introducer sheath [place] [address] OPERATIVE REPORT Name: MARLON FLORES Room: [address] IN [facility].#: [id number] Admission: 10/20/17 Attend Phys: Jose Bermeo, Discharge: 10/31/17 Date of : 59 Report #: [id number] inferior vena cava and a venacavogram performed, which demonstrated the inferior vena cava to be within IFU and the renal vein was clearly recognized. The filter was then positioned under fluoroscopic guidance and deployed and appeared to be upright just above the vena cava bifurcation. Repeat venogram demonstrated no anatomic concerns. The sheath and wire were removed and pressure was held for hemostasis. The patient tolerated the procedure well. Lap, needle, and instrument counts correct. Report Amended 11/06/17 for demographic error <ELECTRONICALLY SIGNED> By: Portillo Vega DO 11/13/17 [id number] Vega DO /nt
== END 2017-10-31 12:54 | disposition home or self-care (01) | DRG 166 ==
LOC: M.ERS 10:00 → M.ICU 11:01 → M.TBA-ER 11:01 → M.ICU 12:33 → M.2W 10-28 02:35
PROVIDERS: Emergency Medicine; Internal Medicine; Internal Medicine Pulmonary Disease; ADMIT Family Medicine
PROC: 5A09357 Assistance with Respiratory Ventilation, Less than 24 Consecutive Hours, Continuous Positive Airway Pressure (ICD-10-PCS; principal; 2017-10-20)
PROC: 5A1955Z Respiratory Ventilation, Greater than 96 Consecutive Hours (ICD-10-PCS; 2017-10-21)
PROC: 0BH17EZ Insertion of Endotracheal Airway into Trachea, Via Natural or Artificial Opening (ICD-10-PCS; 2017-10-21)
PROC: 06H03DZ Insertion of Intraluminal Device into Inferior Vena Cava, Percutaneous Approach (ICD-10-PCS; 2017-10-21)
PROC: 06H033Z Insertion of Infusion Device into Inferior Vena Cava, Percutaneous Approach (ICD-10-PCS; 2017-10-21)
DX: J96.21 Acute and chronic respiratory failure with hypoxia (principal); J18.9 Pneumonia, unspecified organism; I26.09 Other pulmonary embolism with acute cor pulmonale; J44.1 Chronic obstructive pulmonary disease with (acute) exacerbation; J44.0 Chronic obstructive pulmonary disease with (acute) lower respiratory infection; E87.2 Acidosis; E46 Unspecified protein-calorie malnutrition; J96.22 Acute and chronic respiratory failure with hypercapnia; E11.9 Type 2 diabetes mellitus without complications; I25.10 Atherosclerotic heart disease of native coronary artery without angina pectoris; F41.9 Anxiety disorder, unspecified; J20.9 Acute bronchitis, unspecified; D50.0 Iron deficiency anemia secondary to blood loss (chronic); E87.5 Hyperkalemia; I10 Essential (primary) hypertension; F17.210 Nicotine dependence, cigarettes, uncomplicated; Z91.14 Patient's other noncompliance with medication regimen; Z68.22 Body mass index [BMI] 22.0-22.9, adult; Z71.6 Tobacco abuse counseling; Z95.5 Presence of coronary angioplasty implant and graft; Z79.51 Long term (current) use of inhaled steroids; Z79.84 Long term (current) use of oral hypoglycemic drugs; Z79.899 Other long term (current) drug therapy; Z99.81 Dependence on supplemental oxygen; Z88.5 Allergy status to narcotic agent